=== PATIENT | female | born 1965 | race Caucasian/White ===

== ENCOUNTER 2021-05-24 11:33 | Emergency (ER) | payer OTHER ==
[~2021-05-24] VITALS: Ht 157.5 cm; Wt 121.1 kg
== END 2021-05-24 13:56 | disposition home or self-care (01) ==
LOC: ER 11:33
DX: R51.9 Headache, unspecified (principal); M54.2 Cervicalgia; W01.10XA Fall on same level from slipping, tripping and stumbling with subsequent striking against unspecified object, initial encounter; Z88.0 Allergy status to penicillin; Z88.5 Allergy status to narcotic agent; Z87.891 Personal history of nicotine dependence
CPT/HCPCS: 70450; 72125; 99284-25

== ENCOUNTER 2024-02-18 11:55 | Day surgery (SDC) | payer OTHER ==
[~2024-02-18] VITALS: Ht 157.5 cm; Wt 88.5 kg
[~2024-02-18 11:55] MED LIST: LIDO700A20 TOP; METPRE4DP PO; NS 500 ML IV ONE; Robaxin750 MG PO
[2024-02-18] MEDS ORDERED: Ventolin5 MG/1 ML INH (12:25)
[2024-02-18] MEDS ORDERED: Buspirone HCl15 MG PO (12:26)
[2024-02-18] MEDS ORDERED: Prozac20 MG PO (12:27)
[2024-02-18] MEDS ORDERED: GABA400 PO (12:27)
[2024-02-18] MEDS ORDERED: Hydroxyzine HCl50 MG PO (12:29)
[2024-02-18] MEDS ORDERED: MONT10T PO (12:29)
[2024-02-18] MEDS ORDERED: Prinivil10 MG PO (12:29)
[2024-02-18] MEDS ORDERED: NORTRIPTYLINE H5012 PO (12:30)
[2024-02-18] MEDS ORDERED: NYSTATIN (12:30)
[2024-02-18] MEDS ORDERED: NYSTATIN15 GM TOP (12:31)
[2024-02-18] MEDS ORDERED: PRAZ2 PO (12:32)
[2024-02-18] MEDS ORDERED: OMEP20ER PO (12:32)
[2024-02-18] MEDS ORDERED: Zocor20 MG PO (12:32)
[2024-02-18] MEDS ORDERED: STIOLTO RESPIMAT4 G1 (12:34)
[2024-02-18] MEDS ORDERED: TIZA4 PO (12:34)
[2024-02-18] MEDS ORDERED: NS 500 ML IV ONE (12:35)
[2024-02-18] MEDS ORDERED: Midazolam HCl 1MG / ML 2ML Vial ONE ×2 (12:53→13:40)
[2024-02-18] MEDS ORDERED: Dexmedetomidine HCL 200 MCG / 2 ML ONE (13:03)
--- NOTE | 2024-02-18 13:38 | NUR ---
02/18/24 1338 Adela Galvin 1326: DR SHEPARD ASSESSED OPERATIVE SITE WITH ABRAISIONS AND SCRATCHES FROM PUPPY. PER DR SHEPARD OK TO PROCEED. 1328: TIMEOUT FOR PRE-OP INJECTION 1331: PRE-OP INJECTION BY DR SHEPARD OF 10 CC OF 1% LIDOCAINE WITH 1:100,000 EPINEPHRINE TO OPERATIVE SITE (LEFT WRIST)
[2024-02-18] MEDS ORDERED: FentaNYL Citrate 50 MCG/ML 2 ML Injection ONE (13:47)
[2024-02-18 14:07] VITALS: BP 115/61
== END 2024-02-18 14:30 | disposition home or self-care (01) ==
LOC: ORSCSDS 11:55
PROVIDERS: Orthopaedic Surgery
PROC: 01N54ZZ Release Median Nerve, Percutaneous Endoscopic Approach (ICD-10-PCS; principal; 2024-02-18 13:30)
DX: G56.03 Carpal tunnel syndrome, bilateral upper limbs (principal); F41.9 Anxiety disorder, unspecified; E78.5 Hyperlipidemia, unspecified; G47.33 Obstructive sleep apnea (adult) (pediatric); F43.10 Post-traumatic stress disorder, unspecified; I10 Essential (primary) hypertension; F32.A Depression, unspecified; J44.9 Chronic obstructive pulmonary disease, unspecified; Z79.899 Other long term (current) drug therapy
CPT/HCPCS: J2250; J3010; J7040

== ENCOUNTER 2024-03-05 13:08 | Day surgery (SDC) | payer OTHER ==
[~2024-03-05] VITALS: Ht 157.5 cm; Wt 87.2 kg
[~2024-03-05 13:08] MED LIST changes: +Buspirone HCl15 MG PO; +GABA400 PO; +Hydroxyzine HCl50 MG PO; +MONT10T PO; +NORTRIPTYLINE H5012 PO; -NS 500 ML IV ONE; +NYSTATIN; +NYSTATIN15 GM TOP; +OMEP20ER PO; +PRAZ2 PO; +Prinivil10 MG PO; +Prozac20 MG PO; +STIOLTO RESPIMAT4 G1; +TIZA4 PO; +Ventolin5 MG/1 ML INH; +Zocor20 MG PO
[2024-03-05] MEDS ORDERED: Lactated Ringer's 1,000 ML IV SCH (13:45)
[2024-03-05 14:31] VITALS: BP 144/85
--- NOTE | 2024-03-05 14:41 | NUR ---
History, Chart, Medications and Allergies reviewed before start of procedure. Ambulatory in Day Surgery WITH [facility]. Pre-Op teaching done. Pt verbalizes understanding. Patient States Post-Procedure ride home has been arranged WITH [facility] [employer].
[2024-03-05] MEDS ORDERED: Midazolam HCl 1MG / ML 2ML Vial IV SCH (14:50)
[2024-03-05] MEDS ORDERED: Midazolam HCl 1MG / ML 2ML Vial ONE (15:43)
--- NOTE | 2024-03-05 15:46 | NUR ---
CARPAL TUNNEL BLOCK DONE BY DR. SHEPARD. TIME OUT COMPLETED AT 1530. PT PLACED ON 2L NC. 1MG IV VERSED GIVEN PER DOC REQUEST. PT TOLERATED PROCEDURE WELL. BLOCK COMPLETED AT 1542.
[2024-03-05] MEDS ORDERED: propofoL 20 ML IV ONE (16:01)
[2024-03-05] MEDS ORDERED: Ketorolac Tromethamine 30mg Vial ONE (16:10)
--- NOTE | 2024-03-05 16:18 | NUR ---
03/05/24 1618 Jesenia Neal NO INTRAOPERATIVE ANTIBIOTICS ORDERED
[2024-03-05 16:28] VITALS: BP 137/74
--- NOTE | 2024-03-05 16:32 | NUR ---
Discharge instructions reviewed with patient. Patient verbalizes understanding. Copy given to patient to take home. Ambulatory in Day Surgery WITH [facility]. Discharged via wheelchair to private car for ride home.
== END 2024-03-05 16:52 | disposition home or self-care (01) ==
LOC: ORSCMMR 13:08
PROVIDERS: Orthopaedic Surgery
PROC: 01N54ZZ Release Median Nerve, Percutaneous Endoscopic Approach (ICD-10-PCS; principal; 2024-03-05 16:00)
DX: G56.01 Carpal tunnel syndrome, right upper limb (principal); I10 Essential (primary) hypertension; G47.33 Obstructive sleep apnea (adult) (pediatric); Z87.891 Personal history of nicotine dependence; Z79.899 Other long term (current) drug therapy
CPT/HCPCS: J1885; J2250; J2704; J7120

== ENCOUNTER 2024-10-15 11:18 | Emergency (ER) | payer OTHER ==
[~2024-10-15] VITALS: Ht 157.5 cm; Wt 85.7 kg
[2024-10-15 12:13] LABS: BASOPHILS ABSOLUTE AUTO 0.03 K/mm3 (0.00-0.23); BASOPHILS PERCENT AUTO 0 % (0-2); EOSINOPHILS ABSOLUTE AUTO 0.15 K/mm3 (0.00-0.68); EOSINOPHILS PERCENT AUTO 2 % (0-6); Hematocrit 37.6 % (33.0-51.0); Hemoglobin 12.1 g/dL (11.5-16.0); IMMATURE GRAN ABSOLUTE AUTO 0.02 K/mm3 (0.00-0.10); IMMATURE GRAN PERCENT AUTO 0 % (0-1); LYMPHOCYTES ABSOLUTE AUTO 1.88 K/mm3 (0.84-5.20); LYMPHOCYTES PERCENT AUTO 28 % (21-46); MONOCYTES ABSOLUTE AUTO 0.58 K/mm3 (0.16-1.47); MONOCYTES PERCENT AUTO 9 % (4-13); Mean Corpuscular HGB Conc 32.2 g/dL (31.5-36.5); Mean Corpuscular Volume 95 fL (80-100); NEUTROPHILS ABSOLUTE AUTO 4.05 K/mm3 (1.96-9.15); NEUTROPHILS PERCENT AUTO 61 % (41-73); NRBC ABSOLUTE 0.00 K/mm3 (0.00-0.02); NRBC Auto 0.0 /100 WBC (0.0-0.2); Platelet Count 200 K/mm3 (150-400); RDW Coefficient Variation 13.4 % (11.7-14.2); RDW Standard Deviation 46.5 fL (35.1-46.3)
[2024-10-15 13:14] LABS: Alanine Aminotransfer (ALT/SGP 33.0 U/L (12-78); Albumin, Blood 3.2 g/dL (3.4-5.0); Albumin/Globulin Ratio 0.7 (0.8-1.8); Anion Gap 6.0 mmol/L (3-11); Aspartate Aminotrans (AST/SGOT 31.0 U/L (12-37); Bilirubin, Total 0.2 mg/dL (0.1-1.0); Blood Urea Nitrogen 18.0 mg/dL (8-24); CO2, Blood 28.0 mmol/L (21-32); Calcium, Blood 8.6 mg/dL (8.5-10.1); Chloride, Blood 104.0 mmol/L (98-108); Creatinine, Blood 0.83 mg/dL (0.40-1.00); Globulin, Blood 4.9 g/dL (2.2-4.0); Glucose, Blood 106.0 mg/dL (70-99); Potassium, Blood 4.2 mmol/L (3.5-5.5); Sodium, Blood 134.0 mmol/L (136-145); Total Protein, Blood 8.1 g/dL (6.4-8.2)
[2024-10-15 14:41] LABS: Source, Urine Clean Catch
[2024-10-15 14:43] LABS: Bilirubin, Urine Neg (Neg); Color, Urine Yellow (P-Yellow); Glucose Qualitative, Urine Neg (Neg); Ketones, Urine Neg (Neg); Leukocyte Esterase, Urine 1+ (Neg); Protein, Urine Neg (Neg); Specific Gravity, Urine 1.010 (1.003-1.022); Urobilinogen, Urine NORM (Normal)
[2024-10-15 14:49] LABS: Red Blood Cells, Urine 0-2 /hpf (0-2)
[2024-10-15 15:39] VITALS: BP 138/74
== END 2024-10-15 15:40 | disposition home or self-care (01) ==
LOC: ER 11:18
PROVIDERS: Physician Assistant
DX: S06.0XAA Concussion with loss of consciousness status unknown, initial encounter (principal); Z59.89 Other problems related to housing and economic circumstances; Z88.0 Allergy status to penicillin; Z88.5 Allergy status to narcotic agent; Z79.899 Other long term (current) drug therapy; Z88.8 Allergy status to other drugs, medicaments and biological substances; Z90.49 Acquired absence of other specified parts of digestive tract; Z90.710 Acquired absence of both cervix and uterus; Z87.891 Personal history of nicotine dependence; W19.XXXA Unspecified fall, initial encounter
CPT/HCPCS: 70450; 80053; 81001; 85025; 87086; 93005; 93010; 99284-25